=== PATIENT | female | born 1995 | race African-American/Black ===

== ENCOUNTER 2021-10-02 21:46 | Emergency (ER) | payer MEDICAID, SELFPAY | END 2021-10-02 23:08 | disposition home or self-care (01) | LOC: CSHERS 21:46 | DX: B34.9 Viral infection, unspecified (principal); R11.0 Nausea | CPT/HCPCS: 99283 ==

== ENCOUNTER 2021-11-22 05:16 | Emergency (ER) | payer OTHER ==
[2021-11-22 05:47] LABS: Bilirubin Neg (Negative); Blood, Urine Negative (Negative); Clarity Slightly Cloudy (Clear); Glucose, Urine (Dipstick) Normal (Negative); Ketone, Urine Negative (Negative); Leukocyte 25 (Negative); Nitrite Negative (Negative); Protein, Urine (Dipstick) Negative (Neg-Trace); Urobilinogen Normal mg/dL (Less than 2)
[2021-11-22 05:50] LABS: Pregnancy Test - Urine (BHCG) Negative (Negative); Pregu Control Background? CLEAR/WHITE (CLR/WHITE); Pregu Control Bar Appear? YES (CONTROL BAR)
[2021-11-22 05:59] LABS: Bacteria/HPF Rare-Few HPF (None Seen); RBC/HPF 0-3 HPF (0-3)
[2021-11-22] MEDS ORDERED: Sterile Water 10 ML ONE (06:32)
[2021-11-22] MEDS ORDERED: cefTRIAXone\\ROCEPHIN 500 MG VIAL ONE (06:32)
[2021-11-22 07:36] LABS: HIV (1/2) Antibody/Antigen Non-Reactive (NonReactive)
[2021-11-22 14:57] LABS: Chlamydia by PCR Not Detected (NotDetected); GC by PCR Not Detected (NotDetected)
== END 2021-11-22 07:50 | disposition home or self-care (01) ==
LOC: CSHERS 05:16
DX: N89.8 Other specified noninflammatory disorders of vagina (principal); R30.0 Dysuria
CPT/HCPCS: 36415; 81003; 81015; 81025; 87086; 87389; 87480; 87491; 87510; 87591; 87660; 96372; 99283; J0696

== ENCOUNTER 2021-12-15 18:46 | Emergency (ER) | payer OTHER | END 2021-12-15 19:24 | disposition home or self-care (01) | LOC: CSHERS 18:46 | DX: R11.0 Nausea (principal) | CPT/HCPCS: 99283 ==

== ENCOUNTER 2021-12-29 21:05 | Emergency (ER) | payer OTHER | END 2021-12-29 22:03 | disposition home or self-care (01) | LOC: CSHERS 21:05 | DX: R11.2 Nausea with vomiting, unspecified (principal) | CPT/HCPCS: 99283 ==

== ENCOUNTER 2022-11-24 17:48 | Emergency (ER) | payer OTHER ==
[2022-11-24 19:15] LABS: BHCG - Serum Negative (NEGATIVE); Pregs Control Background? CLEAR/WHITE (CLR/WHITE); Pregs Control Bar Appear? YES (CONTROL BAR)
[2022-11-24 19:22] LABS: ALT (SGPT) 13 U/L (8-55); AST (SGOT) 21 U/L (5-34); Albumin 4.1 g/dL (3.5-5.0); Alkaline Phosphatase 36 U/L (40-110); Anion Gap 13 mmol/L (10-20); BUN (Urea Nitrogen) 6 mg/dL (7.0-18.7); Bilirubin, Total 0.5 mg/dL (0.2-1.2); Calc. Creatinine Clearance 0 mL/min (70-130); Calcium 8.9 mg/dL (7.8-10.44); Carbon Dioxide 21 mmol/L (22-29); Chloride 107 mmol/L (98-107); Estimated GFR 104; Globulin 2.9 g/dL (2.4-3.5); Glucose 113 mg/dL (70-105); Potassium 3.8 mmol/L (3.5-5.1); Sodium 137 mmol/L (136-145)
[2022-11-24 19:39] LABS: #Monocytes 0.7 10x3/uL (0.0-1.1); #Neutrophils 4.8 10x3/uL (1.5-8.4); %Basophils 0.5 % (0.0-2.0); %Lymphocytes 7.7 % (18.0-47.0); %Monocytes 11.8 % (0.0-10.0); %Neutrophils 79.5 % (40.0-75.0); Hemoglobin 6.4 g/dL (12.0-15.5); Mean Corpuscular HGB CONC 27.8 g/dL (32.0-36.0); Mean Corpuscular Hemoglobin 16.7 pg (27.0-33.0); Mean Corpuscular Volume 59.9 fl (81.6-98.3); Platelet Count 211 10x3/uL (150-450); RBC Distribution Width 21.7 % (11.5-14.5); Red Blood Cell (RBC) Count 3.84 10x6/uL (3.90-5.03); White Blood Cell (WBC) Count 6.1 10x3/uL (3.5-10.5)
[2022-11-24 20:06] LABS: Anisocytosis SLIGHT = 6-15 cells (100X) (0-5/hpf); Elliptocytes SLIGHT = 2-5 cells (100X) (0-1/hpf); Hypochromia MODERATE=16-30 cells (100X) (0-5/hpf); Poikilocytosis SLIGHT = 6-15 cells (100X) (0-5/hpf); Reflex for Review?? YES; Target Cells SLIGHT = 2-5 cells (100X) (0-1/hpf)
[2022-11-24 20:07] LABS: Tear Drops SLIGHT = 2-5 cells (100X) (0-1/hpf)
[2022-11-24 20:35] LABS: Platelet Adequacy Comment Appears Adequate
== END 2022-11-25 00:08 | disposition home or self-care (01) ==
LOC: CSHERS 17:48
DX: D64.9 Anemia, unspecified (principal); N92.0 Excessive and frequent menstruation with regular cycle
CPT/HCPCS: 36415; 36430; 80053; 84703; 85025; 85060; 86850; 86900; 86901; 99284; P9016